=== PATIENT | female | born 1980 | race Caucasian/White ===

== ENCOUNTER 2024-01-27 11:24 | Emergency (ER) | payer SELFPAY ==
[~2024-01-27] VITALS: Ht 165.1 cm; Wt 60.0 kg
[2024-01-27 11:27] VITALS: O2SAT 80
[2024-01-27] MEDS: SODIUM CHLORIDE 0.9% 1,000 ML IV ONE (12:21)
[2024-01-27 13:29] LABS: BASOPHILS % 0.1 % (0.0-2.0); EOSINOPHILS % 0.2 % (0.0-5.0); HEMATOCRIT. 38.2 % (36.0-48.0); HEMOGLOBIN. 12.6 g/dL (12.0-16.0); LYMPHOCYTES % 8.4 % (20.0-50.0); MEAN CORPUSCULAR HEMOGLOBIN 29.3 pg (28.0-32.0); MEAN CORPUSCULAR VOLUME 88.8 fL (81.0-99.0); MEAN PLATELET VOLUME 7.5 fl (7.4-10.4); MONOCYTES % 4.3 % (2.0-8.0); PLATELET 237 x1000/uL (130-400); RED BLOOD CELL COUNT 4.31 mill/uL (4.2-5.4); RED CELL DISTRIBUTION WIDTH 12.9 % (11.6-14.6); WHITE BLOOD COUNT 16.8 x1000/uL (4.5-11.0)
[2024-01-27 13:45] LABS: CHLORIDE 105 mEq/L (98-107); POTASSIUM 3.7 mEq/L (3.5-5.1); SODIUM 138 mEq/L (136-145)
[2024-01-27 13:46] LABS: CALCIUM 8.7 mg/dL (8.7-10.4); CARBON DIOXIDE 29 mEq/L (21-32)
[2024-01-27 13:51] LABS: CREATININE 0.6 mg/dL (0.6-1.0); GLUCOSE 101 mg/dL (70-105); UREA NITROGEN BLOOD 20 mg/dL (9-23)
[2024-01-27 13:52] LABS: TROPONIN I HIGH SENSITIVITY 5 ng/L (3.0-34)
[2024-01-27 13:54] LABS: HCG SCREEN NEGATIVE
[2024-01-27 13:56] LABS: ETHANOL BLOOD < 10 mg/dL (<10)
[2024-01-27] MEDS ORDERED: TOPUD MT (17:40)
[2024-01-27] MEDS ORDERED: ONDA4TAB50 MT (17:40)
[2024-01-27 18:42] VITALS: BP 132/73; PULSE 73; RESP 14; TEMP 98.4
== END 2024-01-27 18:43 | disposition home or self-care (01) ==
LOC: ER 11:33
DX: S02.2XXA Fracture of nasal bones, initial encounter for closed fracture (principal); Y08.89XA Assault by other specified means, initial encounter; Y93.89 Activity, other specified; Y92.89 Other specified places as the place of occurrence of the external cause; Y99.8 Other external cause status
CPT/HCPCS: 80048; 80320; 84703; 83880; 85025; 84484; 36415; 71045; 70450; 70486; 93005; 96360; 99285; J7030; G0480